=== PATIENT | male | born 1995 | race Caucasian/White ===

== ENCOUNTER → 2020-10-16 | Outpatient (CLI) | payer BC ==
--- NOTE | 2020-10-16 11:19 | REPVR ---
PROCEDURE INFORMATION: Exam: CT Maxillofacial Without Contrast, Sinus Exam date and time: 10/16/2020 8:41 AM Age: 25 years old Clinical indication: Other: Nasal polyp TECHNIQUE: Imaging protocol: CT Maxillofacial without contrast. Focus on the sinuses. Radiation optimization: All CT scans at this facility use at least one of these dose optimization techniques: automated exposure control; mA and/or kV adjustment per patient size (includes targeted exams where dose is matched to clinical indication); or iterative reconstruction. COMPARISON: No relevant prior studies available. FINDINGS: Frontal sinuses: The left frontal sinus demonstrates mild chronic disease, while the right is clear. Ethmoid air cells: There is near complete opacification of the bilateral ethmoid air cells. Sphenoid sinuses: There is mild to moderate left and very mild right chronic sphenoid sinus disease. Maxillary sinuses: The maxillary sinuses demonstrate chronic mucosal disease, moderate to marked on the right and more mild to moderate on the left. High density in the right maxillary sinus suggests chronic inspissation. There are defects through the medial ziegler of the maxillary sinuses which could be postoperative or related to erosion. Nasal cavity/Septum: There is mild rightward deviation of the nasal septum. The ostiomeatal units are obstructed by mucosal disease. There is soft tissue density in the nasal cavity bilaterally, with relative sparing of the inferior aspects, with polyposis not excluded. The middle nasal turbinates are absent, either due to surgery or erosion. Orbital cavity: The globes appear grossly intact, and no definite intraorbital hematoma is identified. Bones/joints: The orbital floors and lamina papyracea are intact. The temporomandibular joints are normally aligned. Soft tissues: Unremarkable. Mastoid air cells: The mastoid air cells are clear. Brain: The visualized intracranial structures appear grossly unremarkable. IMPRESSION: Paranasal sinus disease as described, with soft tissue density in the nasal cavity bilaterally, with polyposis not excluded. Defects through the medial ziegler of the maxillary sinuses and absence of the middle nasal turbinates could be postoperative or related to erosion. Electronically signed by: Hever Dubon On 10/16/2020 11:18:41 AM
== END ==
LOC: M RAD 08:20
PROVIDERS: ATTEND Otolaryngology
DX: J33.9 Nasal polyp, unspecified (principal); R93.89 Abnormal findings on diagnostic imaging of other specified body structures

== ENCOUNTER → 2020-10-31 | Outpatient (CLI) | payer BC ==
[~2020-10-31] MED LIST: PRED10TA2 PO
== END ==
LOC: M LABSMTC 12:52
PROVIDERS: ATTEND Otolaryngology
DX: Z01.812 Encounter for preprocedural laboratory examination (principal); Z11.52 Encounter for screening for COVID-19

== ENCOUNTER → 2020-11-04 | Day surgery (SDC) | payer BC ==
[~2020-11-04] VITALS: Ht 177.8 cm; Wt 63.0 kg
[~2020-11-04] MED LIST changes: +ACETAMINOPHEN 1000MG 100ML IV BTL (OFIRMEV) (J0131 PER 10MG) As Ordered ONE; +COCAINE 4% 4ML NASAL SOLUTION BTL As Ordered ONE; +HYDROMORPHONE HCL 0.5 MG/ 0.5 ML SYRINGE (J1170 PER 1) IV PRN; +HYDROmorphone HCL 2 MG/ML 1ML VIAL (J1170) As Ordered ONE; +LACRILUBE (AKWA TEARS) OPHTH OINT 3.5 GM As Ordered ONE; +LIDOCAINE 1% MDV 20ML VIAL SQ PRN; +LIDOCAINE 2% 100MG/5ML SDV (FOR ANES.) As Ordered ONE; +LIDOCAINE W/EPINEPHRINE 1% 20ML VIAL As Ordered ONE; +LR 1,000 ML IV SCH; +METHYLENE BLUE 0.5% (5MG/ML) 10 ML AMP (PROVAYBLUE) As Ordered ONE; +MIDAZOLAM INJ 2MG/2ML VIAL (J2250 PER 1MG) As Ordered ONE; +NORCO, ANEXSIA 5/325MG TABLET (HYDROcodone/ACETAMINOPHEN) PO PRN; +ONDANSETRON 4MG/2ML VIAL As Ordered ONE; +ONDANSETRON 4MG/2ML VIAL IV PRN; +OXYMETAZOLINE 0.05% NASAL SPRAY (AFRIN) As Ordered ONE; +PHENYLephrine 500MCG 5ML (100MCG/ML) SYRINGE As Ordered ONE; +ROCURONIUM BROMIDE 50 MG/5 ML VIAL As Ordered ONE; +SEVOFLURANE INHAL SOLN 250 ML BTL As Ordered ONE; +SUGAMMADEX SODIUM 500 MG/5 ML VIAL (BRIDION) As Ordered ONE; +dexameTHASONE 4 MG/ML 1ML VIAL (J1100 PER 1MG) As Ordered ONE; +ePHEDrine SULFATE 25 MG/5 ML(5MG/ML) SYRINGE As Ordered ONE; +fentaNYL 100 MCG/2 ML INJECTION (J3010) IV PRN; +fentaNYL 250 MCG/5 ML INJECTION (J3010) As Ordered ONE; +oxyCODONE 5MG TAB PO PRN; +propofoL 200 MG/20 ML VIAL As Ordered ONE
[2020-11-04 14:02] VITALS: BP 115/75
--- NOTE | 2020-11-04 16:22 | POST-OPPD ---
Postoperative Procedure Note Date Of Procedure: Nov 04, 2020 Time Of Procedure: 08:30 PREOPERATIVE DIAGNOSIS: [Bilateral chronic sinusitis and nasal polyposis] POSTOPERATIVE DIAGNOSIS: [Same] PROCEDURE: [Bilateral image guided intranasal total ethmoidectomies, bilateral image guided intranasal frontal sinusotomies with removal of tissue, bilateral image guided intranasal maxillary antrostomies with removal of tissue, bilateral image guided intranasal sphenoidotomy with removal of tissue, bilateral resection of middle turbinates] SURGEON: Steve] CATCHER FILTER TIP: [None] ANESTHESIA: [General] ESTIMATED BLOOD LOSS: [200 mL] FINDINGS: SPECIMENS: Right and left sinus contents] COMPLICATIONS: [None] REPLACED: [None] DRAINS: POSTOPERATIVE CONDITION: [Stable Operative note: The patient was seen in the office and diagnosed with the above condition decision was made in consultation with the patient after explanation of the risks and benefits undergo the above-named procedure. He was admitted through same-day surgery program taken to the operating room where he was administered a general anesthetic via intravenous injection. He was then intubated endotracheally. His nose was decongested with 4 cc of 4% cocaine solution on nasal pledgets. The image guided array was connected to the patient and the fiducial points entered into the computer. Image guided technology was necessary because of the extensive nasal polyps frontal and sphenoid disease. Pledgets were removed from the left side of the nose and a 4 mm endoscope was inserted. We immediately encountered extensive polyps. We injected with 1% lidocaine with epinephrine. Several were harvested with the Adonay forceps. We used the microdebrider to remove additional polyps. The middle meatal area was identified and polyps were cleaned from this area. We incised the uncinate vertically with the [place] elevator and this was removed with the Adonay forceps. Additional polyps were removed from the anterior ethmoid area. Using the microdebrider polyps were cleaned from the anterior ethmoid through the ground lamella into the posterior ethmoid area. The curved tracking suction was used to identify the maxillary sinus ostium. This was enlarged with the backbiting forceps and the microdebrider. Extensive polyps were cleaned from this area and from the maxillary sinus. We moved to the sphenoid rostrum. The sphenoid sinus was entered inferiorly and medially. This was enlarged with the microdebrider. Mucoid and polypoid debris was removed from the sinus. We moved to the frontal recess area and cleaned additional polyps from this region. Using the curved frontal sinus seeker we identified the frontal recess and frontal sinus area. The balloon was passed up into the frontal sinus and dilated the ostium. We then irrigated with 180 mL of saline. Additional polyps were removed from the recess until we could clearly see the opening was patent. We examined the middle turbinate on the side there was polyps on the medial surface as well these were removed with the microdebrider. The turbinate was not stable and decision was made to resect this with the curved turbinate scissors. Afrin-soaked strip gauze was placed on the side of the nose. We moved to the right side and the pledgets were removed once again the 4 mm endoscope was inserted and polyps were encountered we injected with 1% lidocaine with epinephrine. Several were removed with the [place] forceps. We used the microdebrider to remove additional polyps until the middle meatus was visible. We incised the uncinate process vertically and remove this with a Adonay forceps. We used a curved tracking suction to identify the maxillary sinus ostium. This was enlarged with the backbiting forceps and the microdebrider again extensive polyps were removed from the sinus. We penetrated the ethmoid bulla and remove polyps from the anterior ethmoid air cells using the image guided microdebrider. We penetrated the ground lamella and cleaned polyps from the posterior ethmoid cells. The sphenoid rostrum was identified. We entered the sphenoid sinus medially and inferiorly. Mucoid and polypoid debris was removed from the sinus as well. We moved up to the frontal recess and identified this area with the frontal sinus seeker. Polyps were removed from this region. We passed the balloon up into the frontal sinus and dilated the ostium. 180 mg liters of saline was used to irrigate the sinus. The balloon was then removed and removed additional polyps and enlarged the opening until we could clearly see into the frontal sinus. The middle turbinate was examined here as well and once again there were polyps on the medial surface these were removed with the shaver. The turbinate was also unstable decision was made to resect this with a curved turbinate scissors. Afrin-soaked strip gauze was placed on the side of the nose. The gauze was removed from the left side of the nose and FloSeal was placed in the ethmoid area. Gauze was removed from the right side of the nose and FloSeal was placed on this side as well. A mustache dressing was placed under the nose. Patient was then allowed to recover from anesthetic and taken to the postanesthesia care area in stable condition.] Natalio Wick MD Nov 04, 2020 16:22
== END | disposition home or self-care (01) ==
LOC: M SDC 06:35
PROVIDERS: ATTEND Otolaryngology
DX: J32.9 Chronic sinusitis, unspecified (principal); J31.0 Chronic rhinitis; J33.0 Polyp of nasal cavity; R43.0 Anosmia; H90.3 Sensorineural hearing loss, bilateral; Z79.52 Long term (current) use of systemic steroids
CPT/HCPCS: 31253; 31259; 31267; 61782; 88305; A6024; C9046; J0131; J1100; J1170; J2250; J2370; J2405; J3010